=== PATIENT | female | born 1945 | race Caucasian/White ===

== ENCOUNTER → 2018-03-04 | Outpatient (CLI) | payer OTHER ==
[~2018-03-04] MED LIST: ACET325 PO; ACYC200; ATEN50; Advil Pm Liqui1 EACH PO; Advil200 M1 PO; BACTROBAN TOP; CELE200 PO; ELIQUIS2.5 MG; ELIQUIS5 MG PO; FAMO20; LEVSOD50 PO; MUPI1NAS TOP; Multivitamin1 EAC1 PO; OMEPRAZOLE20 MG PO; Omeprazole20 M1 PO; SACC250C PO; TUMS200 MG; VENL150ER; VITAMIN C500 M1 PO; VITAMIN D32000 UNIT PO
== END ==
LOC: LAB SHORT 10:27 → PLD 10:27
DX: D48.5 Neoplasm of uncertain behavior of skin (principal)
CPT/HCPCS: 88305; 88312

== ENCOUNTER → 2018-03-05 | Outpatient (CLI) | payer OTHER ==
[2018-03-05 12:03] LABS: Source, Urine Clean Catch
[2018-03-05 14:52] LABS: Bilirubin, Urine Neg (Neg); Blood, Urine 2+ (Neg); Glucose Qualitative, Urine Neg (Neg); Ketones, Urine Neg (Neg); Leukocyte Esterase, Urine 1+ (Neg); Nitrite, Urine Neg (Neg); Protein, Urine 1+ (Neg); Specific Gravity, Urine 1.015 (1.003-1.022); Urobilinogen, Urine NORM (Normal)
[2018-03-05 15:01] LABS: Appearance, Urine Hazy (Clear); Color, Urine Yellow (P-Yellow)
[2018-03-05 15:17] LABS: Bacteria Few /hpf; Red Blood Cells, Urine 0-2 /hpf (0-2); Squamous Epithelial Cells Few /hpf (Few)
[2018-03-05 15:18] LABS: Calcium Oxalate Crystals Mod /hpf; Mucus Light (0-Heavy)
== END | disposition home or self-care (01) ==
LOC: LAB SHORT 12:01 → LAB 12:01
PROVIDERS: Dermatology
DX: L95.9 Vasculitis limited to the skin, unspecified (principal)
CPT/HCPCS: 81001

== ENCOUNTER → 2018-03-16 | Outpatient (CLI) | payer OTHER ==
[2018-03-16 17:50] LABS: Creatinine Urine 75.3 mg/dL (27.00-270.00); Protein, Urine Quantitative 6.5 mg/dL (0.0-11.9)
== END | disposition home or self-care (01) ==
LOC: LAB SHORT 08:00 → LAB 08:00 → LAB FUT 03-13 15:25 → EDSTATUS 03-13 15:25
PROVIDERS: Internal Medicine
DX: R80.9 Proteinuria, unspecified (principal); L95.9 Vasculitis limited to the skin, unspecified
CPT/HCPCS: 81050; 82570; 84156

== ENCOUNTER 2018-05-23 15:57 | Emergency (ER) | payer OTHER ==
[~2018-05-23] VITALS: Ht 167.6 cm; Wt 97.5 kg
[2018-05-23 16:42] LABS: BASOPHILS ABSOLUTE AUTO 0.04 K/mm3 (0.00-0.23); BASOPHILS PERCENT AUTO 1 % (0-2); EOSINOPHILS ABSOLUTE AUTO 0.59 K/mm3 (0.00-0.68); EOSINOPHILS PERCENT AUTO 8 % (0-6); Hematocrit 40.6 % (33.0-51.0); IMMATURE GRAN ABSOLUTE AUTO 0.02 K/mm3 (0.00-0.10); IMMATURE GRAN PERCENT AUTO 0 % (0-1); LYMPHOCYTES ABSOLUTE AUTO 1.94 K/mm3 (0.84-5.20); LYMPHOCYTES PERCENT AUTO 27 % (21-46); MONOCYTES ABSOLUTE AUTO 0.37 K/mm3 (0.16-1.47); MONOCYTES PERCENT AUTO 5 % (4-13); Mean Corpuscular HGB 30.5 pg (26.0-34.0); Mean Corpuscular Volume 95 fL (80-100); Mean Platelet Volume 11.1 fL (9.1-12.4); NEUTROPHILS ABSOLUTE AUTO 4.12 K/mm3 (1.96-9.15); NEUTROPHILS PERCENT AUTO 58 % (41-73); Platelet Count 200 K/mm3 (150-400); RDW Coefficient Variation 13.6 % (11.7-14.2); RDW Standard Deviation 47.8 fL (35.1-46.3); Red Blood Cell Count 4.26 M/mm3 (3.80-5.20); White Blood Cell Count 7.08 K/mm3 (4.00-11.30)
[2018-05-23 16:56] LABS: Alanine Aminotransfer (ALT/SGP 24 U/L (12-78); Albumin, Blood 3.7 g/dL (3.4-5.0); Albumin/Globulin Ratio 0.8 (0.8-1.8); Alk Phos 69 U/L (50-136); Anion Gap 7 mmol/L (6-16); Aspartate Aminotrans (AST/SGOT 23 U/L (12-37); Bilirubin, Total 0.6 mg/dL (0.1-1.0); Blood Urea Nitrogen 9 mg/dL (8-24); Bun/Creatinine Ratio 14.1 (12.0-20.0); CO2, Blood 25 mmol/L (21-32); Calcium, Blood 9.3 mg/dL (8.5-10.1); Chloride, Blood 107 mmol/L (98-108); Creatinine, Blood 0.64 mg/dL (0.40-1.00); Globulin, Blood 4.4 g/dL (2.2-4.0); Glomerular Filtration Rate >60 (60-); Glucose, Blood 107 mg/dL (70-99); Potassium, Blood 4.1 mmol/L (3.5-5.5); Sodium, Blood 139 mmol/L (136-145); Total Protein, Blood 8.1 g/dL (6.4-8.2)
[2018-05-23] MEDS ORDERED: FOLI1 PO (19:17)
[2018-05-23] MEDS ORDERED: Methotrexate2.5 MG PO (19:18)
[2018-05-23 19:54] LABS: Source, Urine Clean Catch
[2018-05-23 19:59] LABS: Bilirubin, Urine Neg (Neg); Blood, Urine 1+ (Neg); Glucose Qualitative, Urine Neg (Neg); Ketones, Urine Neg (Neg); Leukocyte Esterase, Urine Neg (Neg); Nitrite, Urine Neg (Neg); Protein, Urine Neg (Neg); Urobilinogen, Urine NORM (Normal)
[2018-05-23 20:08] LABS: Appearance, Urine Clear (Clear); Color, Urine Yellow (P-Yellow)
[2018-05-23 20:12] LABS: Bacteria Few /hpf; Red Blood Cells, Urine 0-2 /hpf (0-2); Squamous Epithelial Cells Mod /hpf (Few); White Blood Cells, Urine Rare /hpf (0-5)
== END 2018-05-23 20:28 | disposition home or self-care (01) ==
LOC: ER 15:57
PROVIDERS: Emergency Medicine; Physician Assistant
DX: R10.11 Right upper quadrant pain (principal); L98.3 Eosinophilic cellulitis [Wells]; I48.91 Unspecified atrial fibrillation; E03.9 Hypothyroidism, unspecified; G43.909 Migraine, unspecified, not intractable, without status migrainosus; Z79.899 Other long term (current) drug therapy; Z88.0 Allergy status to penicillin; Z88.5 Allergy status to narcotic agent; Z88.6 Allergy status to analgesic agent; Z88.8 Allergy status to other drugs, medicaments and biological substances; Z87.891 Personal history of nicotine dependence
CPT/HCPCS: 36415; 74177; 80053; 81001; 83690; 85025; Q9967

== ENCOUNTER → 2019-03-02 | Outpatient (CLI) | payer OTHER ==
[~2019-03-02] MED LIST changes: +FOLI1 PO; +Methotrexate2.5 MG PO
== END | disposition home or self-care (01) ==
LOC: LAB SHORT 11:41 → PLD 11:41
DX: L82.1 Other seborrheic keratosis (principal)
CPT/HCPCS: 88305

== ENCOUNTER 2019-07-28 12:05 | Day surgery (SDC) | payer OTHER ==
[~2019-07-28] VITALS: Ht 170.2 cm; Wt 92.9 kg
--- NOTE | 2019-07-28 12:28 | NUR ---
Ambulatory in Day Surgery History, Chart, Medications and Allergies reviewed before start of procedure. Lungs clear T/O to Auscultation. Patient confirms NPO status and agrees with scheduled surgery.
[2019-07-29 04:19] LABS: BASOPHILS ABSOLUTE AUTO 0.01 K/mm3 (0.00-0.23); BASOPHILS PERCENT AUTO 0 % (0-2); EOSINOPHILS ABSOLUTE AUTO 0.01 K/mm3 (0.00-0.68); EOSINOPHILS PERCENT AUTO 0 % (0-6); Hemoglobin 11.8 g/dL (11.5-16.0); IMMATURE GRAN ABSOLUTE AUTO 0.05 K/mm3 (0.00-0.10); IMMATURE GRAN PERCENT AUTO 0 % (0-1); LYMPHOCYTES ABSOLUTE AUTO 1.14 K/mm3 (0.84-5.20); LYMPHOCYTES PERCENT AUTO 10 % (21-46); MONOCYTES PERCENT AUTO 3 % (4-13); Mean Corpuscular HGB 28.9 pg (26.0-34.0); Mean Corpuscular HGB Conc 31.9 g/dL (31.5-36.5); Mean Corpuscular Volume 91 fL (80-100); Mean Platelet Volume 10.8 fL (9.1-12.4); NEUTROPHILS PERCENT AUTO 86 % (41-73); Platelet Count 187 K/mm3 (150-400); RDW Standard Deviation 42.5 fL (35.1-46.3); Red Blood Cell Count 4.09 M/mm3 (3.80-5.20); White Blood Cell Count 11.81 K/mm3 (4.00-11.30)
[2019-07-29 04:45] LABS: Anion Gap 3 mmol/L (6-16); Blood Urea Nitrogen 13 mg/dL (8-24); Bun/Creatinine Ratio 20.6 (12.0-20.0); CO2, Blood 28 mmol/L (21-32); Calcium, Blood 8.6 mg/dL (8.5-10.1); Chloride, Blood 106 mmol/L (98-108); Creatinine, Blood 0.63 mg/dL (0.40-1.00); Glomerular Filtration Rate >60 (60-); Glucose, Blood 131 mg/dL (70-99); Magnesium, Blood 1.9 mg/dL (1.6-2.4); Potassium, Blood 4.4 mmol/L (3.5-5.5); Sodium, Blood 137 mmol/L (136-145)
--- NOTE | 2019-07-29 05:15 | NUR ---
SHIFT SUMMARY POD 1 R TKA [id number], VSS. DRESSING CDI, POLAR EVETTE IN PLACE. PT DENIED PAIN DURING SHIFT. HAS BEEN UP AND AMBULATED TO BATHROOM DURING SHIFT WITH FWW AND GB. VOIDING IN BATHROOM. TOLERATING PO WELL. NAUSEA RELIEVED WITH CRACKERS. PT EAGER TO WORK WITH THERAPY AND POSSIBLY GO HOME.
--- NOTE | 2019-07-29 07:15 | NUR ---
recvd bedside report from previous RN Darci, pt a/o x 4, up in chair, pleasant/cooperative. Dr Cotto rounding on pt. plan for PT x 2 today then DC home. pt denies pain at this time. Call light within reach, recliner wheels locked
[2019-07-29] MEDS ORDERED: HYDR1TAB94 PO (11:28)
[2019-07-29] MEDS ORDERED: ACET500 PO (11:29)
[2019-07-29] MEDS ORDERED: IBUP400 PO (11:30)
--- NOTE | 2019-07-29 11:40 | NUR ---
Upon receiving an admit referral for spiritual care, I visit patient. Patient's spouse, Michael, Is bedside. Patient tells me about the surgery and the success of the whole experience. Patient states that, in part, the beauty of the vent has to do with the [place] of God. Patient tells me her concerns about the recovery. I listen empathically and provide a calming presence and prayer. Patient responds well and shows signs of reduced stress.
--- NOTE | 2019-07-29 11:50 | NUR ---
provided pt with discharge teaching/printed materials, removed peripheral IV wnl. pt states understanding of instructions. pt's transporting pt's belongings to vehicle. pt transported to awaiting vehicle via wheelchair.
== END 2019-07-29 12:04 | disposition home or self-care (01) ==
LOC: ORSCMMR 12:05 → ORD 13:30 → SURS 17:06 → ORSCMMR 07-29 12:04 → SURS 07-29 12:04
PROVIDERS: Orthopaedic Surgery
PROC: 8E0YXBZ Computer Assisted Procedure of Lower Extremity (ICD-10-PCS; principal; 2019-07-28 13:30)
PROC: 0SRC0J9 Replacement of Right Knee Joint with Synthetic Substitute, Cemented, Open Approach (ICD-10-PCS; principal; 2019-07-28 13:30)
DX: M17.11 Unilateral primary osteoarthritis, right knee (principal); I48.91 Unspecified atrial fibrillation; Z79.01 Long term (current) use of anticoagulants; Z87.891 Personal history of nicotine dependence; E03.9 Hypothyroidism, unspecified; Z79.899 Other long term (current) drug therapy
CPT/HCPCS: 36415; 73560-RT; 80048; 83735; 85025; 88300; 97110; 97116; 97162; A9270-GY; C1713; J0171; J0735; J1100; J1885; J2250; J2370; J2405; J2704; J2795; J3010; J3370; J7120

== ENCOUNTER 2020-06-16 08:13 | Day surgery (SDC) | payer OTHER ==
[~2020-06-16 08:13] MED LIST changes: +ACET500 PO; +HYDR1TAB94 PO; +IBUP400 PO
== END 2020-06-16 23:06 | disposition home or self-care (01) ==
LOC: MOI US 08:13 → MOI MAM 08:45 → MOI US 08:45
DX: C50.212 Malignant neoplasm of upper-inner quadrant of left female breast (principal); Z17.0 Estrogen receptor positive status [ER+]
CPT/HCPCS: 19083; 77065; 88305; 88360; A4648

== ENCOUNTER → 2020-12-05 | Outpatient (CLI) | payer OTHER | LOC: LAB 07:43 → LAB SHORT 07:43 | DX: D48.5 Neoplasm of uncertain behavior of skin (principal); L30.8 Other specified dermatitis | CPT/HCPCS: 88305; 88312; 88313 ==

== ENCOUNTER 2022-08-21 08:32 | Day surgery (SDC) | payer OTHER ==
[~2022-08-21] VITALS: Ht 170.2 cm; Wt 98.6 kg
[2022-08-21] VITALS (15 sets, daily range): BP systolic 123–167; BP diastolic 73–86
[~2022-08-21 08:32] MED LIST changes: +FASLODEX250 MG/5 M IM; +GABA300 PO; +IBRANCE75 MG PO; +METO25 PO; +PANT40 PO; +XGEVA120 MG/1.1 SC
--- NOTE | 2022-08-21 08:45 | NUR ---
Ambulatory in Day Surgery History, Chart, Medications and Allergies reviewed before start of procedure.Lungs clear T/O to Auscultation. Patient confirms NPO status and agrees with scheduled surgery. Patient reports completing Chlorhexadine shower X2 prior to admission to hospital.Surgical site prepped with 2% Chlorhexidine cloth wipe.
[2022-08-21] MEDS ORDERED: METTREX2.5 PO (08:50)
--- NOTE | 2022-08-21 18:34 | NUR ---
SHIFT SUMMARY PT A&OX4, VSS/RA, MEAGHAN PO, VOIDING, AMB SBA FWW/GB, UP TO CHAIR, PHYSICAL THERAPY EVAL'D, PAIN MANAGED WITH OXY 5/TYLENOL/TORADOL, IV RAC. WILL REPORT TO ONCOMING NOC RN.
[2022-08-22] VITALS: BP 129/62
[2022-08-22 04:12] VITALS: BP 114/72
[2022-08-22 04:28] LABS: BASOPHILS ABSOLUTE AUTO 0.01 K/mm3 (0.00-0.23); BASOPHILS PERCENT AUTO 0 % (0-2); EOSINOPHILS PERCENT AUTO 0 % (0-6); Hematocrit 30.8 % (33.0-51.0); Hemoglobin 10.9 g/dL (11.5-16.0); IMMATURE GRAN ABSOLUTE AUTO 0.04 K/mm3 (0.00-0.10); IMMATURE GRAN PERCENT AUTO 1 % (0-1); LYMPHOCYTES ABSOLUTE AUTO 0.56 K/mm3 (0.84-5.20); LYMPHOCYTES PERCENT AUTO 13 % (21-46); MONOCYTES ABSOLUTE AUTO 0.11 K/mm3 (0.16-1.47); MONOCYTES PERCENT AUTO 3 % (4-13); Mean Corpuscular HGB 35.6 pg (26.0-34.0); Mean Corpuscular HGB Conc 35.4 g/dL (31.5-36.5); Mean Corpuscular Volume 101 fL (80-100); Mean Platelet Volume 9.9 fL (9.1-12.4); NEUTROPHILS ABSOLUTE AUTO 3.72 K/mm3 (1.96-9.15); NEUTROPHILS PERCENT AUTO 84 % (41-73); Platelet Count 167 K/mm3 (150-400); Red Blood Cell Count 3.06 M/mm3 (3.80-5.20); White Blood Cell Count 4.44 K/mm3 (4.00-11.30)
[2022-08-22 05:00] LABS: Bun/Creatinine Ratio 15.7 (12.0-20.0); Calcium, Blood 8.2 mg/dL (8.5-10.1); Creatinine, Blood 0.76 mg/dL (0.40-1.00); Magnesium, Blood 1.8 mg/dL (1.6-2.4); Potassium, Blood 4.2 mmol/L (3.5-5.5)
--- NOTE | 2022-08-22 05:53 | NUR ---
SHIFT SUMMARY NO ACUTE CHANGES TO REPORT OVERNIGHT. POD 0 LEFT TOTAL KNEE, SHE HAS DONE WELL OVERNIGHT, AND PAIN HAS BEEN MINIMAL. PT HAS BEEN UP AND AMBULATING, TOLERATING PO INTAKE AND IS VOIDING. POST OP VITALS STABLE. DRESSING C/D/I. FIRE RISK ASSESSED THIS SHIFT, PT EDUCATED ON IGNITION RISK AND SOURCES. PT DENIES HAVING IGNITION SOURCES.
[2022-08-22 07:04] VITALS: BP 109/69
[2022-08-22 08:46] VITALS: BP 129/64
[2022-08-22 10:52] VITALS: BP 132/71
--- NOTE | 2022-08-22 11:00 | NUR ---
DISCHARGE SUMMARY PT A&OX4, VSS/RA, MEAGHAN PO, VOIDING, AMB SBA FWW/GB, PAIN MANAGED, IV DC'D, FIRE PREVENTION EDU/NO IGNITION SOURCES ID'D. DC INS PROVIDED. PT AND REP UNDERSTANDING THESE INSTRUCTIONS INCLUDING DRESSING CHANGES, ELIQUIS TO START TONIGHT, STOP METHOTREXATE UNTIL BACTRIM COMPLETE/THEN RESTART(APPROVED BY PCP AND SURGEON PER PHARMACIST). LEFT FLOOR VIA WC WITH ALL PERSONAL POSSESSIONS INCLUDING DC PACKET, AQUACEL DRESSINGS.
--- NOTE | 2022-08-22 11:35 | NUR ---
Pt. is sitting up in a recliner and awaiting discharge. Pt. is pleasant. Facilitated a life review and focused on matters of local tom and belief. [place] rapport and prayed with the Pt. Pt. displayed evidence of confidence and paula as we met. Pt. verbalized gratitude for the spiritual care visit.
== END 2022-08-22 11:00 | disposition home or self-care (01) ==
LOC: ORSCMMR 08:32 → ORD 10:45 → SURS 13:38 → ORSCMMR 08-22 11:00
PROVIDERS: Orthopaedic Surgery
PROC: 0SRD0J9 Replacement of Left Knee Joint with Synthetic Substitute, Cemented, Open Approach (ICD-10-PCS; principal; 2022-08-21 10:45)
DX: M17.12 Unilateral primary osteoarthritis, left knee (principal); Z96.651 Presence of right artificial knee joint; Z85.3 Personal history of malignant neoplasm of breast; Z85.830 Personal history of malignant neoplasm of bone; I48.91 Unspecified atrial fibrillation; Z79.01 Long term (current) use of anticoagulants; E03.9 Hypothyroidism, unspecified; M06.9 Rheumatoid arthritis, unspecified; Z79.899 Other long term (current) drug therapy
CPT/HCPCS: 36415; 73560-LT; 80048; 83735; 85025; 97110; 97116; 97162; A9270; C1713; C1776; J0171; J0690; J0735; J1100; J1885; J2250; J2371; J2405; J2704; J2765; J2795; J3010; J3370; J7120

== ENCOUNTER → 2024-06-22 | Outpatient (CLI) | payer OTHER ==
[~2024-06-22] MED LIST changes: +METTREX2.5 PO
== END ==
LOC: LAB 11:15 → LAB SHORT 11:15
DX: N39.0 Urinary tract infection, site not specified (principal)
CPT/HCPCS: 87077; 87086; 87186